=== PATIENT | male | born 1935 | race Caucasian/White ===

== ENCOUNTER 2024-03-06 08:36 | Day surgery (SDC) | payer OTHER ==
[~2024-03-06] VITALS: Ht 162.6 cm; Wt 71.9 kg
[~2024-03-06 08:36] MED LIST: ABILIFY MYCITE2 M2 PO; AMLO5 PO; ASPI81EC PO; Aspir 8181 MG PO; Benicar40 MG PO; CPAP; CYMBALTA30 M1 PO; ESCI10 PO; FAMO20 PO; HYDCHL25 PO; IRBE150; MECL25 PO; METO25ER PO; NS 500 ML IV ONE; Povidone-Iodine 450 DROP/30 ML Solution ONE; QUET25 PO; ROPI1 PO; ROSU5 PO; ROSUVASTATIN CA10 MG PO; SPIHYD; Tetracaine HCl/Pf 0.5% Opth Soln 4 ml ONE; Triamcinolone Inj Susp 40 MG / ML 1ML Vial ONE; VENL37.5ER; Vitamin D2000 UNIT PO
[2024-03-06] MEDS ORDERED: Tetracaine HCl 0.5% Opth Soln 15 ml ONE (09:22)
[2024-03-06] MEDS ORDERED: NS 500 ML IV ONE (09:24)
--- NOTE | 2024-03-06 09:24 | NUR ---
03/06/24 0924 Alejandra Anders AT 0912 PLEKARRIEET AT 0915
[2024-03-06] MEDS ORDERED: Midazolam HCl 1MG / ML 2ML Vial ONE (09:26)
[2024-03-06] MEDS ORDERED: BSS PLUS/EPINEPHRINE IRRIGATION SOLUTION 500 ML IR ONE (09:53)
[2024-03-06] MEDS ORDERED: Moxifloxacin HCL 0.5 MG/0.1 ML 0.4MLSYR XX ONE (09:53)
[2024-03-06 10:10] VITALS: BP 132/63
== END 2024-03-06 10:24 | disposition home or self-care (01) ==
LOC: ORSCSDS 08:36
PROVIDERS: Ophthalmology
PROC: 08RJ3JZ Replacement of Right Lens with Synthetic Substitute, Percutaneous Approach (ICD-10-PCS; principal; 2024-03-06 10:00)
DX: H25.813 Combined forms of age-related cataract, bilateral (principal); I10 Essential (primary) hypertension; E78.5 Hyperlipidemia, unspecified; Z95.0 Presence of cardiac pacemaker; G47.33 Obstructive sleep apnea (adult) (pediatric); Z86.73 Personal history of transient ischemic attack (TIA), and cerebral infarction without residual deficits; I25.2 Old myocardial infarction; F41.9 Anxiety disorder, unspecified; Z79.899 Other long term (current) drug therapy
CPT/HCPCS: J2250; J3301; J7040; V2632

== ENCOUNTER 2024-03-13 08:04 | Day surgery (SDC) | payer OTHER ==
[~2024-03-13] VITALS: Ht 162.6 cm; Wt 72.6 kg
[~2024-03-13 08:04] MED LIST changes: +Balanced Salt Epinephrine Irrigation Solution 500 mL IR SCH; +Lidocaine HCl/Pf 1% 5 ML VIAL XX SCH; +Moxifloxacin HCL 0.5 MG/0.1 ML 0.4MLSYR LEFTEYE SCH; -NS 500 ML IV ONE; +PHENYLEPHRINE\\TROPICAMIDE\\TETRACAINE OPHTHALMIC DILATING SOLN LEFTEYE PRN; +Povidone-Iodine 450 DROP/30 ML Solution LEFTEYE SCH; -Povidone-Iodine 450 DROP/30 ML Solution ONE; -Tetracaine HCl/Pf 0.5% Opth Soln 4 ml ONE; +Triamcinolone Inj Susp 40 MG / ML 1ML Vial INJ SCH
--- NOTE | 2024-03-13 08:47 | NUR ---
03/13/24 0847 Annetta Braden DENIES ANY PAIN.
[2024-03-13] MEDS ORDERED: Vitamin D1000 UNI1 PO (08:51)
[2024-03-13] MEDS ORDERED: Midazolam HCl 1MG / ML 2ML Vial ONE (09:17)
[2024-03-13 09:47] VITALS: BP 115/65
== END 2024-03-13 09:59 | disposition home or self-care (01) ==
LOC: ORSCSDS 08:04
PROVIDERS: Ophthalmology
PROC: 08RK3JZ Replacement of Left Lens with Synthetic Substitute, Percutaneous Approach (ICD-10-PCS; principal; 2024-03-13 09:30)
DX: H25.812 Combined forms of age-related cataract, left eye (principal); Z96.1 Presence of intraocular lens; H53.002 Unspecified amblyopia, left eye; Z95.0 Presence of cardiac pacemaker; Z86.73 Personal history of transient ischemic attack (TIA), and cerebral infarction without residual deficits; F41.9 Anxiety disorder, unspecified; G47.33 Obstructive sleep apnea (adult) (pediatric); Z87.891 Personal history of nicotine dependence; I10 Essential (primary) hypertension; E78.5 Hyperlipidemia, unspecified; Z79.899 Other long term (current) drug therapy
CPT/HCPCS: J2250; J3301; V2632

== ENCOUNTER 2024-07-08 07:09 | Day surgery (SDC) | payer OTHER ==
[2024-07-08] VITALS (7 sets, daily range): BP systolic 126–142; BP diastolic 55–73
[~2024-07-08] VITALS: Ht 160 cm; Wt 73.9 kg
[~2024-07-08 07:09] MED LIST changes: -Balanced Salt Epinephrine Irrigation Solution 500 mL IR SCH; -Lidocaine HCl/Pf 1% 5 ML VIAL XX SCH; -Moxifloxacin HCL 0.5 MG/0.1 ML 0.4MLSYR LEFTEYE SCH; -PHENYLEPHRINE\\TROPICAMIDE\\TETRACAINE OPHTHALMIC DILATING SOLN LEFTEYE PRN; -Povidone-Iodine 450 DROP/30 ML Solution LEFTEYE SCH; +QUET25; -Triamcinolone Inj Susp 40 MG / ML 1ML Vial INJ SCH; -Triamcinolone Inj Susp 40 MG / ML 1ML Vial ONE; +Vitamin D1000 UNI1 PO
[2024-07-08] MEDS ORDERED: Heparin Sodium 1000 Units/ML 10ML MDV ONE ×2 (07:40→07:55)
[2024-07-08] MEDS ORDERED: NS 500 ML IV ONE (07:40)
[2024-07-08] MEDS ORDERED: NS 250 ML IV ONE (07:40)
[2024-07-08] MEDS ORDERED: CeFAZolin Sodium 1000 mg Vial ONE (07:40)
[2024-07-08] MEDS ORDERED: FentaNYL Citrate 50 MCG/ML 2 ML Injection ONE (07:55)
[2024-07-08] MEDS ORDERED: CeFAZolin Sodium 2,000 MG VIAL ONE (07:55)
[2024-07-08] MEDS ORDERED: Midazolam HCl 1MG / ML 2ML Vial ONE (07:55)
[2024-07-08] MEDS ORDERED: NS 100 ML IV ONE (07:56)
[2024-07-08] MEDS ORDERED: NS 1,000 ML IV ONE (07:56)
--- NOTE | 2024-07-08 09:50 | NUR ---
PATIENT ARRIVED TO RECOVERY ROOM SITTING UPRIGHT IN BED. RIGHT CHEST DRESSING C/D/I SOFT/NONTENDER, NO EVIDENCE OF BLEEDING. VSS ON RA. PATIENT CONVERSING APPROPRIATELY. PATIENT DENYING ANY PAIN. ICE APPLIED TO INCISION SITE.
--- NOTE | 2024-07-08 10:30 | NUR ---
PATIENT TOLERATING PO INTAKE WELL. VSS ON RA. PATIENT CONVERSING APPROPRIATELY.ICE PACK IN PLACE. DRESSING C/D/I
--- NOTE | 2024-07-08 11:00 | NUR ---
DISCHARGE INSTRUCTIONS REVIEWED WITH PATIENT. ALL QUESTIONS WERE ANSWERED
--- NOTE | 2024-07-08 11:20 | NUR ---
PATIENT DISCAHRGED HOME AT THIS TIME. ALL PATIENT BELONGINGS LEFT WITH PATIENT. PATIENT WHEELED TO HOSPITAL ENTRANCE. SPOUSE ABLE TO PROVIDE TRANSPORTATION HOME. PIV REMOVED WITHOUT DIFFICULTY, CATHTETER INTACT.
== END 2024-07-08 11:20 | disposition home or self-care (01) ==
LOC: MHTC 07:09
DX: T82.191A Other mechanical complication of cardiac pulse generator (battery), initial encounter (principal); I44.2 Atrioventricular block, complete; E78.5 Hyperlipidemia, unspecified; G47.33 Obstructive sleep apnea (adult) (pediatric); G25.81 Restless legs syndrome; G47.52 REM sleep behavior disorder; H90.3 Sensorineural hearing loss, bilateral; H81.13 Benign paroxysmal vertigo, bilateral; I10 Essential (primary) hypertension; Z87.891 Personal history of nicotine dependence; Z88.8 Allergy status to other drugs, medicaments and biological substances; Z79.82 Long term (current) use of aspirin; Z79.899 Other long term (current) drug therapy
CPT/HCPCS: 33228; 99152; 99153; C1785; J0690; J1644; J2250; J3010; J7030; J7040; J7050